=== PATIENT | male | born 1935 | race Hispanic/Latino ===

== ENCOUNTER 2016-07-10 06:23 | Day surgery (SDC) | payer MEDICARE, OTHER ==
[2016-06-25 11:08] VITALS: BMI 30.4
[~2016-07-10 06:23] MED LIST: Lactated Ringer's 500 ML IV ONE; Phenylephrine 2.5% Opht Soln OS SCH; Tropicamide 1% Opht SOLUTION OS SCH; acetaZOLAMIDE 500 mg SR Cap PO ONE
[2016-07-10] MEDS ORDERED: Lactated Ringer's 500 ML IV ONE (06:40)
[2016-07-10] MEDS ORDERED: Flurbiprofen 0.03% Opht SOLN OS SCH (07:00)
[2016-07-10] MEDS ORDERED: Ciprofloxacin 0.3% OPTH SOLN OS SCH (07:00)
[2016-07-10] MEDS: Povidone Iodine Ophthalmic 5% Soln ONE ×2 (07:49→09:25)
[2016-07-10] MEDS: Hyaluronidase Human, Recombi 150 U/ML VIAL ONE ×2 (07:50→09:27)
[2016-07-10] MEDS: Chondroitin/Hyaluronate Opth Syringe KIT (0.55 ml-0.5 ml) IO ONE ×2 (07:50→09:44)
[2016-07-10] MEDS: Lidocaine 2% Inj (20ml) ONE ×2 (07:50→09:27)
[2016-07-10] MEDS: Tobramycin/Dexamethasone OPHT OINT ONE ×3 (07:51→09:58)
[2016-07-10] MEDS: Carbachol 0.01% IO ONE ×2 (07:51→09:53)
[2016-07-10] MEDS ORDERED: Midazolam 2 MG/2 ML VIAL ONE (08:30)
--- NOTE | 2016-07-10 12:19 | OP ---
PROCEDURE DATE: 07/10/2016 PREOPERATIVE DIAGNOSIS: CATARACT LEFT EYE. POSTOPERATIVE DIAGNOSIS: CATARACT LEFT EYE. OPERATIVE PROCEDURE: PHACOEMULSIFICATION LEFT EYE, INSERTION OF POSTERIOR CHAMBER IMPLANT. SURGEON: Dr. Kelly. COSURGEON: ANESTHESIA TYPE: LOCAL INTRAVENOUS SEDATION. PROCEDURE: The patient was brought into the operating room, placed in supine position, prepped and dr aped in the usual fashion for ophthalmic surgery. Lid speculum inserted, lids and exposin g globe. A side port incision was made superiorly and inferiorly with a disposable sharp blade. Ant erior chamber was filled with Viscoat. A near clear corneal incision was made temporally with a 2.75 millimeter keratome. Capsulorrhexis was then performed with Utrata forceps. Hydrodissection lorri d out with balanced salt solution. Nucleus was phacoemulsified. Remaining cortical fragments were r emoved with a split irrigation and aspiration system. The capsular sac was filled with Provisc. A p osterior chamber lens was then injected into the capsular sac and rotated into horizontal position. Provisc was aspirated out of the anterior chamber. The pupil was constricted with Miochol. The woun d was found to be watertight. Topical Betadine, Timoptic and TobraDex ointment and pressure patch we re applied. The patient tolerated the procedure well. Rodrigo Kelly MD cc: 249 TT: 07/10/2016 12:18:50 mg
[2016-07-10 13:49] VITALS: BP 114/60; PULSE 61; RESP 18; TEMP 97.8; O2SAT 100
== END 2016-07-10 13:40 | disposition home or self-care (01) ==
LOC: C.SDS 06:23
PROVIDERS: ATTEND Ophthalmology
DX: H26.9 Unspecified cataract (principal)
CPT/HCPCS: 66984; J2250; J3010; J3470; J7120

== ENCOUNTER 2018-08-01 13:38 | Emergency (ER) | payer MEDICARE, OTHER ==
[2018-08-01 13:39] VITALS: BMI 30.4
[2018-08-01 13:52] VITALS: RESP 20
[2018-08-01 14:19] LABS: SQUAMOUS EPITHIAL 3 /hpf (0-5); URINE BILIRUBIN NEGATIVE (NEGATIVE); URINE BLOOD NEGATIVE (NEGATIVE); URINE CLARITY Hazy (Clear); URINE COLOR Yellow (YELLOW); URINE GLUCOSE (UA) NORMAL (Normal); URINE LEUKOCYTE ESTERASE 2+ Leu/uL (Negative); URINE PROTEIN NEGATIVE (NEGATIVE)
--- NOTE | 2018-08-01 14:23 | C.PDOC ---
History Of Present Illness 82 y/o male presents to ED with chief complaint of urinary retention. Patient has history of prostate problems and was seen by a urologist recently, placed on cipro. Since yesterday, patient reports he developed drooling and was unable to urinate. Patient denies fever, back pain, nausea, or vomiting. Time Seen by Provider: 08/01/18 13:48 Chief Complaint (Nursing): Male Genitourinary History Per: Patient History/Exam Limitations: no limitations Onset/Duration Of Symptoms: Hrs Current Symptoms Are (Timing): Still Present Past Medical History Reviewed: Historical Data, Nursing Documentation, Vital Signs Vital Signs: Last Vital Signs Temp 99 F 08/01/18 13:46 Pulse 135 H 08/01/18 13:46 Resp 20 08/01/18 13:46 BP 166/108 H 08/01/18 13:46 Pulse Ox 94 L 08/01/18 13:46 - Medical History PMH: Arthritis (hands), Atrial Fibrillation, Cardia Arrhythmia (hx atrial fib), Depression, HTN, Hypercholesterolemia Denies: Diabetes, Hepatitis, Chronic Kidney Disease, Seizures, Sexually Transmitted Disease Surgical History: Appendectomy (@ age 8) - [facility] Procedures DEBRIDEMENT OF NAIL, NAIL BED OR NAIL FOLD (11/14/13) INDIVID PSYCHOTHERAP NEC (11/14/13) OTHER GROUP THERAPY (11/14/13) VACCINATION NEC (01/10/14) Family History: States: No Known Family Hx - Social History Hx Tobacco Use: No Hx Alcohol Use: Yes Hx Substance Use: No - Immunization History Hx Tetanus Toxoid Vaccination: No Hx Influenza Vaccination: Yes Hx Pneumococcal Vaccination: Yes Review Of Systems Except As Marked, All Systems Reviewed And Found Negative. Constitutional: Negative for: Fever, Chills ENT: Positive for: Other (Drooling) Gastrointestinal: Negative for: Nausea, Vomiting Genitourinary: Positive for: Other (Urinary retention) Musculoskeletal: Negative for: Back Pain Physical Exam - Physical Exam Appears: Non-toxic, No Acute Distress Skin: Warm, Dry Head: Atraumatic, Normacephalic Eye(s): bilateral: Normal Inspection Oral Mucosa: Moist Neck: Supple Chest: Symmetrical Cardiovascular: Rhythm Regular, No Murmur Respiratory: Normal Breath Sounds, No Rales, No Rhonchi, No Wheezing Gastrointestinal/Abdominal: Other (Distended bladder, mild tenderness) Back: No CVA Tenderness Extremity: Bilateral: Atraumatic, Normal ROM Neurological/Psych: Oriented x3, Normal Speech ED Course And Treatment O2 Sat by Pulse Oximetry: 96 (RA) Pulse Ox Interpretation: Normal Medical Decision Making Medical Decision Making: Plan: --Urine Culture --Paul --UA Nurse placed paul, 800cc of urine output. Disposition Counseled Patient/Family Regarding: Diagnosis, Need For Followup - Disposition Disposition: HOME/ ROUTINE Disposition Time: 14:20 Condition: STABLE Additional Instructions: CONTINUE CIPRO as directed, follow up Friday with your urologist Instructions: Paul Catheter, Male, Urinary Retention Forms: [employer] (Kyrgyz) - Clinical Impression Clinical Impression: Urinary retention - Scribe Statement The provider has reviewed the documentation as recorded by the Lance Garcia Provider Attestation: All medical record entries made by the Olesyaibradha were at my direction and personally dictated by me. I have reviewed the chart and agree that the record accurately reflects my personal performance of the history, physical exam, medical decision making, and the department course for this patient. I have also personally directed, reviewed, and agree with the discharge instructions and disposition.
[2018-08-01 14:38] VITALS: BP 124/75; PULSE 106; TEMP 98.6
[2018-08-01 14:45] VITALS: O2SAT 96
== END 2018-08-01 15:04 | disposition home or self-care (01) ==
LOC: C.ER 13:38
DX: R33.9 Retention of urine, unspecified (principal); E78.00 Pure hypercholesterolemia, unspecified; I48.91 Unspecified atrial fibrillation; I10 Essential (primary) hypertension